=== PATIENT | female | born 1965 | race Asian ===

== ENCOUNTER 2022-08-05 11:12 | Emergency (ER) | payer MEDICAID ==
[~2022-08-05] VITALS: Ht 157.5 cm; Wt 86.4 kg
[2022-08-05 11:24] VITALS: TEMP 98.8
[2022-08-05] MEDS ORDERED: ATOR20TA PO ×2 (11:26→14:32)
[2022-08-05] MEDS ORDERED: IRBE150T51 PO (11:26)
[2022-08-05] MEDS ORDERED: METF-81 PO ×2 (11:26→14:33)
[2022-08-05 11:36] LABS: GLUCOMETER DEV NAME(LOC) ERT.5; GLUCOSE,POINT OF CARE 113 MG/DL (70-110)
[2022-08-05 12:09] LABS: BASOPHILS % (AUTO) 0.8 % (0.0-2.0); EOSINOPHILS % (AUTO) 5.1 % (1.0-6.0); HEMATOCRIT 42.2 % (36-46); HEMOGLOBIN 14.3 g/dL (12.0-16.0); LYMPHOCYTES # (AUTO) 3.4 K/uL (1.0-4.8); LYMPHOCYTES % (AUTO) 43.4 % (22.0-44.0); MEAN CORPUSCULAR HEMOGLOBIN 31.3 pg (26.0-34.0); MEAN CORPUSCULAR HGB CONC 33.8 G/dL (31.0-37.0); MEAN CORPUSCULAR VOLUME 93 fL (80-100); MONOCYTES # (AUTO) 0.7 K/uL (0.1-1.0); NEUTROPHILS # (AUTO) 3.3 K/uL (1.8-7.7); NEUTROPHILS % (AUTO) 41.7 % (40.0-70.0); PLATELET COUNT (AUTO) 284 K/uL (150-450); RED BLOOD CELL COUNT(AUTO) 4.56 MIL/uL (4.00-5.20); RED CELL DISTRIBUTION WIDTH 13.2 % (11.5-14.5)
[2022-08-05 12:14] LABS: CALCIUM, TOTAL 9.6 mg/dL (8.8-10.5); CREATININE 1.08 mg/dL (0.60-1.30); POTASSIUM 3.8 mmol/L (3.5-5.1)
[2022-08-05] MEDS ORDERED: MECLIZINE HCL 25 MG TABLET PO ONE (12:15)
[2022-08-05] MEDS ORDERED: SODIUM CHLORIDE 0.9% 1,000 ML IV ONE (12:15)
[2022-08-05 12:20] LABS: ALBUMIN 4.1 g/dL (3.4-5.0); BILIRUBIN,TOTAL 0.5 mg/dL (0.1-1.0); TOTAL PROTEIN, SERUM 8.3 g/dL (6.4-8.2)
[2022-08-05 13:23] LABS: APPEARANCE,URINE CLEAR (CLEAR); BILIRUBIN,URINE NEGATIVE (NEGATIVE); GLUCOSE, URINE (UA) NEGATIVE (NEGATIVE); KETONES,URINE NEGATIVE (NEGATIVE); LEUKOCYTE ESTERASE ,URINE SMALL (NEGATIVE); NITRATE,URINE NEGATIVE (NEGATIVE); OCCULT BLOOD,URINE TRACE (NEGATIVE); PROTEIN,URINE NEGATIVE (NEGATIVE); SPECIFIC GRAVITIY, URINE 1.011 (1.003-1.030); UROBILINOGEN,URINE <=1.0 mg/dL (<=1.0)
[2022-08-05 13:34] LABS: BACTERIA,URINE None Seen /HPF (None Seen); RBC,URINE 0-2 /HPF (0-2); SQUAMOUS EPITHELIAL CELL,UR Rare /LPF (None Seen)
[2022-08-05] MEDS ORDERED: CEPH-558 PO (14:26)
[2022-08-05] MEDS ORDERED: MECL-160 PO (14:27)
[2022-08-05] MEDS ORDERED: IRBE300T43 PO (14:33)
[2022-08-05 14:38] VITALS: BP 126/76; PULSE 62; RESP 18
== END 2022-08-05 14:42 | disposition home or self-care (01) ==
LOC: EMS 11:15
DX: R42 Dizziness and giddiness (principal); N39.0 Urinary tract infection, site not specified; E11.9 Type 2 diabetes mellitus without complications; E78.00 Pure hypercholesterolemia, unspecified; I10 Essential (primary) hypertension; Z90.49 Acquired absence of other specified parts of digestive tract; Z91.013 Allergy to seafood; Z91.012 Allergy to eggs
CPT/HCPCS: 70450; 80053; 81001; 82962; 84484; 85025; 93005; 96360; 99285; J7030; 36415-L1; 36415-TC

== ENCOUNTER 2022-08-29 16:28 | Emergency (ER) | payer MEDICAID ==
[~2022-08-29] VITALS: Ht 160 cm; Wt 83.6 kg
[~2022-08-29 16:28] MED LIST: ATOR20TA PO; CEPH-558 PO; IRBE150T51 PO; IRBE300T43 PO; MECL-160 PO; METF-81 PO
[2022-08-29] MEDS ORDERED: SODIUM CHLORIDE 0.9% 1,000 ML IV ONE (18:00)
[2022-08-29] MEDS ORDERED: KETOROLAC TROMETHAMINE 30 MG/ML VIAL IVP ONE (18:00)
[2022-08-29] MEDS ORDERED: ONDANSETRON HCL 4 MG/2 ML VIAL IVP ONE (18:00)
[2022-08-29 18:41] LABS: EOSINOPHILS % (AUTO) 4.7 % (1.0-6.0); HEMATOCRIT 42.1 % (36-46); HEMOGLOBIN 13.9 g/dL (12.0-16.0); LYMPHOCYTES # (AUTO) 3.4 K/uL (1.0-4.8); LYMPHOCYTES % (AUTO) 40.7 % (22.0-44.0); MEAN CORPUSCULAR HEMOGLOBIN 30.7 pg (26.0-34.0); MEAN CORPUSCULAR HGB CONC 32.9 G/dL (31.0-37.0); MEAN CORPUSCULAR VOLUME 93 fL (80-100); MONOCYTES # (AUTO) 0.6 K/uL (0.1-1.0); MONOCYTES % (AUTO) 7.7 % (2.0-9.0); NEUTROPHILS # (AUTO) 3.9 K/uL (1.8-7.7); NEUTROPHILS % (AUTO) 45.9 % (40.0-70.0); PLATELET COUNT (AUTO) 287 K/uL (150-450); RED BLOOD CELL COUNT(AUTO) 4.52 MIL/uL (4.00-5.20)
[2022-08-29 18:54] LABS: ANION GAP 8 mmol/L (8-16); CALCIUM, TOTAL 9.3 mg/dL (8.8-10.5); CARBON DIOXIDE 28 mmol/L (22-29); CHLORIDE 103 mmol/L (98-107); CREATININE 0.93 mg/dL (0.60-1.30); GLOMERULAR FILTR. RATE CALC > 60 mL/min (>60); GLUCOSE,RANDOM 89 mg/dL (70-110); POTASSIUM 4.1 mmol/L (3.5-5.1); SODIUM SERUM 139 mmol/L (136-145)
[2022-08-29 19:00] LABS: APPEARANCE,URINE CLEAR (CLEAR); BILIRUBIN,URINE NEGATIVE (NEGATIVE); GLUCOSE, URINE (UA) NEGATIVE (NEGATIVE); KETONES,URINE NEGATIVE (NEGATIVE); LEUKOCYTE ESTERASE ,URINE NEGATIVE (NEGATIVE); NITRATE,URINE NEGATIVE (NEGATIVE); OCCULT BLOOD,URINE TRACE (NEGATIVE); PROTEIN,URINE NEGATIVE (NEGATIVE); UROBILINOGEN,URINE <=1.0 mg/dL (<=1.0)
[2022-08-29 19:10] LABS: BACTERIA,URINE None Seen /HPF (None Seen); RBC,URINE 0-2 /HPF (0-2); WBC,URINE None Seen /HPF (0-5)
[2022-08-29] MEDS ORDERED: IBUP-1492 PO (20:25)
[2022-08-29] MEDS ORDERED: CYCL-448 PO (20:25)
[2022-08-29 20:56] VITALS: BP 119/79; PULSE 65; RESP 16; TEMP 97.3
== END 2022-08-29 21:34 | disposition home or self-care (01) ==
LOC: EMS 16:34
DX: N20.9 Urinary calculus, unspecified (principal); E11.9 Type 2 diabetes mellitus without complications; E78.00 Pure hypercholesterolemia, unspecified; I10 Essential (primary) hypertension; Z90.49 Acquired absence of other specified parts of digestive tract; Z91.013 Allergy to seafood; Z91.012 Allergy to eggs
CPT/HCPCS: 99285; 74176; 96374; 96361; 96375; 80048; 81001; 85025; 36415; J1885; J2405; J7030

== ENCOUNTER 2022-09-24 16:02 | Emergency (ER) | payer SELFPAY ==
[~2022-09-24] VITALS: Ht 167.6 cm; Wt 85.0 kg
[~2022-09-24 16:02] MED LIST changes: -CEPH-558 PO; +CYCL-448 PO; +IBUP-1492 PO
[2022-09-24 16:32] VITALS: TEMP 98.3
[2022-09-24 17:45] LABS: BASOPHILS % (AUTO) 0.5 % (0.0-2.0); EOSINOPHILS % (AUTO) 4.7 % (1.0-6.0); HEMATOCRIT 37.7 % (36-46); HEMOGLOBIN 12.7 g/dL (12.0-16.0); LYMPHOCYTES # (AUTO) 2.6 K/uL (1.0-4.8); LYMPHOCYTES % (AUTO) 34.7 % (22.0-44.0); MEAN CORPUSCULAR HGB CONC 33.6 G/dL (31.0-37.0); MEAN CORPUSCULAR VOLUME 92 fL (80-100); MONOCYTES # (AUTO) 0.6 K/uL (0.1-1.0); MONOCYTES % (AUTO) 8.6 % (2.0-9.0); NEUTROPHILS # (AUTO) 3.8 K/uL (1.8-7.7); NEUTROPHILS % (AUTO) 51.5 % (40.0-70.0); PLATELET COUNT (AUTO) 257 K/uL (150-450); RED BLOOD CELL COUNT(AUTO) 4.09 MIL/uL (4.00-5.20); RED CELL DISTRIBUTION WIDTH 12.9 % (11.5-14.5)
[2022-09-24 17:53] LABS: CALCIUM, TOTAL 8.6 mg/dL (8.8-10.5); CREATININE 1.17 mg/dL (0.60-1.30); POTASSIUM 4.2 mmol/L (3.5-5.1)
[2022-09-24 17:59] LABS: ALBUMIN 3.6 g/dL (3.4-5.0); BILIRUBIN,TOTAL 0.6 mg/dL (0.1-1.0); TOTAL PROTEIN, SERUM 7.6 g/dL (6.4-8.2)
[2022-09-24] MEDS ORDERED: TAMS-13 PO ×2 (19:12→20:17)
[2022-09-24] MEDS ORDERED: ALBU18HF12 IH (19:12)
[2022-09-24] MEDS ORDERED: ATOR40TA71 PO (19:12)
[2022-09-24] MEDS ORDERED: POTA15TA11 PO (19:12)
[2022-09-24] MEDS ORDERED: METF-890 PO (19:12)
[2022-09-24] MEDS ORDERED: ONDANSETRON HCL 4 MG/2 ML VIAL IM ONE (19:15)
[2022-09-24] MEDS ORDERED: KETOROLAC TROMETHAMINE 60 MG/2 ML VIAL IM ONE (19:15)
[2022-09-24] MEDS ORDERED: HYDROCODONE/ACETAMINOPHEN 5-325 MG TABLET PO ONE (19:15)
[2022-09-24 19:43] LABS: APPEARANCE,URINE CLEAR (CLEAR); BILIRUBIN,URINE NEGATIVE (NEGATIVE); GLUCOSE, URINE (UA) NEGATIVE (NEGATIVE); KETONES,URINE NEGATIVE (NEGATIVE); LEUKOCYTE ESTERASE ,URINE NEGATIVE (NEGATIVE); NITRATE,URINE NEGATIVE (NEGATIVE); OCCULT BLOOD,URINE MODERATE (NEGATIVE); PROTEIN,URINE TRACE mg/dL (NEGATIVE); SPECIFIC GRAVITIY, URINE 1.024 (1.003-1.030); UROBILINOGEN,URINE <=1.0 mg/dL (<=1.0)
[2022-09-24] MEDS ORDERED: DOCU-352 PO (20:17)
[2022-09-24] MEDS ORDERED: ONDA-104 PO (20:17)
[2022-09-24] MEDS ORDERED: IBUP-1554 PO (20:17)
[2022-09-24] MEDS ORDERED: HYDR-4072 PO (20:17)
[2022-09-24 20:30] VITALS: BP 125/74; PULSE 72; RESP 16
[2022-09-24 20:30] LABS: BACTERIA,URINE None Seen /HPF (None Seen); SQUAMOUS EPITHELIAL CELL,UR Rare /LPF (None Seen); WBC,URINE None Seen /HPF (0-5)
== END 2022-09-24 21:10 | disposition home or self-care (01) ==
LOC: EMS 16:05
DX: N20.9 Urinary calculus, unspecified (principal); E11.9 Type 2 diabetes mellitus without complications; E78.00 Pure hypercholesterolemia, unspecified; I10 Essential (primary) hypertension; Z87.442 Personal history of urinary calculi; Z91.013 Allergy to seafood
CPT/HCPCS: 99284; 80053; 81001; 83690; 84484; 85025; 36415; 96372; J1885; J2405

== ENCOUNTER 2024-01-16 12:43 | Emergency (ER) | payer MEDICAID ==
[~2024-01-16] VITALS: Ht 160 cm; Wt 86.4 kg
[~2024-01-16 12:43] MED LIST changes: +ALBU18HF12 IH; -ATOR20TA PO; +ATOR40TA71 PO; +DOCU-412 PO; +HYDR-4072 PO; +IBUP-1554 PO; -IRBE150T51 PO; -MECL-160 PO; +MECL-302 PO; +METF-1150 PO; -METF-81 PO; +ONDA-104 PO; +POTA15TA11 PO; +TAMS0.4C94 PO
[2024-01-16 12:52] VITALS: TEMP 97.8
[2024-01-16] MEDS ORDERED: METF-1211 PO (13:01)
[2024-01-16] MEDS ORDERED: IRBE300T26 PO (13:01)
[2024-01-16 13:07] VITALS: PULSE 95; RESP 18; RESP 20; O2SAT 89
[2024-01-16] MEDS: ALBUTEROL SULFATE 2.5 MG/0.5 ML NEB SOLUTION NEB ONE ×2 (13:07→14:08)
[2024-01-16 13:15] VITALS: BP 145/87; O2SAT 99
[2024-01-16 13:22] VITALS: PULSE 85; RESP 18; O2SAT 99
[2024-01-16] MEDS: IPRATROPIUM BROMIDE 0.5 MG/2.5 ML NEB SOLUTION NEB ONE (14:08)
[2024-01-16 14:09] VITALS: PULSE 101; RESP 20; O2SAT 93
[2024-01-16] MEDS: PredniSONE 20 MG TABLET PO ONE (14:10)
[2024-01-16 14:24] VITALS: PULSE 84; RESP 22; O2SAT 99
[2024-01-16] MEDS ORDERED: METH4TAB3 PO (15:31)
[2024-01-16] MEDS ORDERED: ALBU18HF12 IH (15:31)
[2024-01-16] MEDS ORDERED: AZIT250T9 PO (15:31)
[2024-01-16] MEDS: DEXAMETHASONE SOD PHOS 4 MG/ML 5 ML VIAL IM ONE (15:34)
== END 2024-01-16 16:37 | disposition home or self-care (01) ==
LOC: EMS 12:43
DX: J45.909 Unspecified asthma, uncomplicated (principal); J98.4 Other disorders of lung; E11.9 Type 2 diabetes mellitus without complications; I10 Essential (primary) hypertension; E78.00 Pure hypercholesterolemia, unspecified; Z91.013 Allergy to seafood; Z91.012 Allergy to eggs; Z87.442 Personal history of urinary calculi; Z79.899 Other long term (current) drug therapy
CPT/HCPCS: 99285; 71045; 94640; 82962; 96372; J1100; J7512; J7613

== ENCOUNTER 2024-11-08 09:11 | Emergency (ER) | payer MEDICAID ==
[~2024-11-08] VITALS: Ht 160 cm; Wt 87.0 kg
[~2024-11-08 09:11] MED LIST changes: +AZIT-164 PO; +BENZ-227 PO; -CYCL-448 PO; -DOCU-412 PO; +GUAIF600 PO; -HYDR-4072 PO; -IBUP-1492 PO; -IBUP-1554 PO; +IRBE300T26 PO; -IRBE300T43 PO; -MECL-302 PO; -METF-1150 PO; +METF-1211 PO; -ONDA-104 PO; +PRED-554 PO; -TAMS0.4C94 PO
[2024-11-08 09:15] VITALS: TEMP 97.5
[2024-11-08 09:20] VITALS: PULSE 86; RESP 26; O2SAT 99
[2024-11-08] MEDS: IPRATROPIUM BROMIDE 0.5 MG/2.5 ML NEB SOLUTION NEB ONE ×3 (09:24→11:59)
[2024-11-08] MEDS: ALBUTEROL SULFATE 2.5 MG/0.5 ML NEB SOLUTION NEB ONE ×2 (09:24→11:59)
[2024-11-08 09:25] VITALS: PULSE 81; RESP 26; O2SAT 98
[2024-11-08 09:31] VITALS: PULSE 81; RESP 26; O2SAT 100
[2024-11-08] MEDS: ALBUTEROL SULFATE 2.5 MG/0.5 ML 5 ML NEB SOLUTION NEB ONE (09:34)
[2024-11-08 09:36] LABS: COVID AG,FIA SOURCE NASAL SWAB
[2024-11-08 09:45] LABS: PLATELET COUNT (AUTO) 328 K/uL (150-450); RED BLOOD CELL COUNT(AUTO) 4.45 MIL/uL (4.00-5.20); RED CELL DISTRIBUTION WIDTH 13.7 % (11.5-14.5); WHITE BLOOD COUNT (AUTO) 7.4 K/uL (4.5-11.0)
[2024-11-08 09:51] LABS: CALCIUM, TOTAL 8.7 mg/dL (8.8-10.5); CREATININE 0.89 mg/dL (0.60-1.30); GLOMERULAR FILTR. RATE CALC > 60 mL/min (>60); GLUCOSE,RANDOM 110 mg/dL (70-110); SODIUM SERUM 143 mmol/L (136-145); UREA NITROGEN, BLOOD 12 mg/dL (7-18)
[2024-11-08 10:10] LABS: SARS-COV2 (COVID) ANTIGEN,FIA Negative (Negative)
[2024-11-08 10:11] LABS: INFLUENZA TYPE A NEGATIVE FOR TYPE A (NEGATIVE); INFLUENZA TYPE B NEGATIVE FOR TYPE B (NEGATIVE)
[2024-11-08 12:00] VITALS: PULSE 102; RESP 16; O2SAT 99
[2024-11-08] MEDS: ALBUTEROL SULFATE HFA 90 MCG/PUFF 8 GM INHALER IH ONE (12:16)
[2024-11-08 12:40] VITALS: BP 126/72; PULSE 95; RESP 18; O2SAT 95
[2024-11-08] MEDS ORDERED: PRED-554 PO (13:11)
[2024-11-08] MEDS ORDERED: IPRA3AMP24 NEB (13:11)
[2024-11-08] MEDS ORDERED: ALBU18HF12 IH (13:11)
== END 2024-11-08 13:34 | disposition home or self-care (01) ==
LOC: EMS 09:17
DX: J45.901 Unspecified asthma with (acute) exacerbation (principal); R06.02 Shortness of breath; E11.9 Type 2 diabetes mellitus without complications; E78.00 Pure hypercholesterolemia, unspecified; I10 Essential (primary) hypertension; Z79.899 Other long term (current) drug therapy; Z87.442 Personal history of urinary calculi; Z79.52 Long term (current) use of systemic steroids; Z20.822 Contact with and (suspected) exposure to COVID-19
CPT/HCPCS: 99285; 96374; 71045; 87426; 80048; 85025; 87804; 36415; 94644; J2919; 94640; 94760; J7613

== ENCOUNTER 2024-11-22 21:53 | Inpatient (IN) | payer MEDICAID ==
[~2024-11-22] VITALS: Ht 160 cm; Wt 87.1 kg
[~2024-11-22 21:53] MED LIST changes: +IPRA3AMP24 NEB
[2024-11-22 22:18] VITALS: PULSE 80; RESP 18; O2SAT 96
[2024-11-22] MEDS: ALBUTEROL SULFATE 2.5 MG/0.5 ML NEB SOLUTION NEB ONE (22:18)
[2024-11-22] MEDS: IPRATROPIUM BROMIDE 0.5 MG/2.5 ML NEB SOLUTION NEB ONE (22:18)
[2024-11-22 22:33] VITALS: PULSE 81; RESP 18; O2SAT 98
[2024-11-22 22:51] LABS: PLATELET COUNT (AUTO) 249 K/uL (150-450); RED BLOOD CELL COUNT(AUTO) 4.10 MIL/uL (4.00-5.20); RED CELL DISTRIBUTION WIDTH 13.7 % (11.5-14.5); WHITE BLOOD COUNT (AUTO) 13.8 K/uL (4.5-11.0)
[2024-11-22 23:01] LABS: CALCIUM, TOTAL 8.6 mg/dL (8.8-10.5); CREATININE 1.07 mg/dL (0.60-1.30); GLOMERULAR FILTR. RATE CALC 52.0 mL/min (>60); GLUCOSE,RANDOM 167.0 mg/dL (70-110); SODIUM SERUM 143.0 mmol/L (136-145); UREA NITROGEN, BLOOD 10.0 mg/dL (7-18)
[2024-11-22 23:11] LABS: TROPONIN I-HIGH SENSITIVITY 13 ng/L (<51)
[2024-11-22] MEDS ORDERED: ACETAMINOPHEN 325 MG TABLET PO PRN (23:30)
[2024-11-22] MEDS ORDERED: ALBUTEROL SULFATE 2.5 MG/0.5 ML NEB SOLUTION NEB PRN (23:30)
[2024-11-22] MEDS ORDERED: ONDANSETRON HCL 4 MG/2 ML VIAL IVP PRN (23:30)
[2024-11-22] MEDS ORDERED: IPRATROPIUM BROMIDE 0.5 MG/2.5 ML NEB SOLUTION NEB PRN (23:30)
[2024-11-23] VITALS (9 sets, daily range): BP systolic 123–149; BP diastolic 80–85; PULSE 74–90; RESP 12–20; TEMP 97.7–98.2; O2SAT 74–100
[2024-11-23] MEDS: HEPARIN SODIUM,PORCINE 5,000 UNITS/ML VIAL SQ SCH
[2024-11-23] MEDS: CefTRIAXone 1 GM/DEXTROSE 50 ML IV SCH (00:14)
[2024-11-23] MEDS: ALBUTEROL SULFATE 2.5 MG/0.5 ML NEB SOLUTION NEB SCH (00:26)
[2024-11-23] MEDS: IPRATROPIUM BROMIDE 0.5 MG/2.5 ML NEB SOLUTION NEB SCH (00:26)
[2024-11-23] MEDS ORDERED: MAGNESIUM SULFATE 4 GM/WATER 100 ML IV PRN (02:15)
[2024-11-23] MEDS ORDERED: POTASSIUM CHL 10 MEQ/WATER 50 ML IV PRN (02:15)
[2024-11-23] MEDS ORDERED: MAGNESIUM SULFATE 2 GM/WATER 50 ML IV PRN (02:15)
[2024-11-23] MEDS ORDERED: MAGNESIUM OXIDE 400 MG TABLET PO PRN (02:15)
[2024-11-23] MEDS: POTASSIUM CHLORIDE 20 MEQ ER TABLET PO PRN (02:39)
[2024-11-23] MEDS ORDERED: INFLUENZA VIRUS VACCINE TVS (6MO+) 2025-26/PF 45 MCG/0.5 ML SYRINGE IM. ONE (03:30)
[2024-11-23] MEDS: DOXYCYCLINE HYCLATE 100 MG TABLET PO SCH (08:58)
[2024-11-23] MEDS: DOCUSATE SODIUM 100 MG CAPSULE PO SCH (08:58)
[2024-11-23 09:02] LABS: PLATELET COUNT (AUTO) 285 K/uL (150-450); RED BLOOD CELL COUNT(AUTO) 4.43 MIL/uL (4.00-5.20); RED CELL DISTRIBUTION WIDTH 13.3 % (11.5-14.5); WHITE BLOOD COUNT (AUTO) 8.2 K/uL (4.5-11.0)
[2024-11-23 09:14] LABS: CALCIUM, TOTAL 8.8 mg/dL (8.8-10.5); CREATININE 1.17 mg/dL (0.60-1.30); GLOMERULAR FILTR. RATE CALC 47.0 mL/min (>60); GLUCOSE,RANDOM 159.0 mg/dL (70-110); SODIUM SERUM 140.0 mmol/L (136-145); UREA NITROGEN, BLOOD 10.0 mg/dL (7-18)
[2024-11-23] MEDS: MAGNESIUM SULFATE 1 GM in DEXTROSE 5%-WATER 50 ML IV ONE (13:01)
[2024-11-23] MEDS ORDERED: INSULIN LISPRO 100 UNITS/ML SQ PRN (23:00)
[2024-11-23] MEDS ORDERED: DEXTROSE 50%-WATER 25 GM/50 ML SYRINGE IVP PRN (23:00)
[2024-11-23] MEDS ORDERED: SODIUM CHLORIDE 0.9% 500 ML IV ONE (23:55)
[2024-11-24] VITALS (9 sets, daily range): BP systolic 129–138; BP diastolic 72–91; PULSE 68–80; RESP 14–20; TEMP 97.9–98.1; O2SAT 97–100
[2024-11-24] MEDS ORDERED: CEFD300C18 PO (14:34)
[2024-11-24] MEDS ORDERED: DOXY-354 PO (14:34)
== END 2024-11-24 16:40 | disposition home or self-care (01) | DRG 141 ==
LOC: EMS 21:57 → EDH 23:28 → 6S 11-23 01:03
PROVIDERS: ADMIT Internal Medicine; ATTEND Internal Medicine
DX: J45.901 Unspecified asthma with (acute) exacerbation (principal); J18.9 Pneumonia, unspecified organism; I10 Essential (primary) hypertension; E11.9 Type 2 diabetes mellitus without complications; E66.9 Obesity, unspecified; Y95 Nosocomial condition; E78.00 Pure hypercholesterolemia, unspecified; Z87.442 Personal history of urinary calculi; Z68.34 Body mass index [BMI] 34.0-34.9, adult
CPT/HCPCS: 71045; 80048; 82040; 83735; 83880; 84484; 85025; 87040; 93005; 94640; 99285; G0378; J0696; J1644; J2919; J3475; J7040; J7060; 36415-L1; 36415-TC; J7613